=== PATIENT | male | born 1970 | race Caucasian/White ===

== ENCOUNTER → 2021-12-01 | Day surgery (SDC) | payer OTHER ==
[~2021-12-01] VITALS: Ht 180.3 cm; Wt 106.6 kg
[~2021-12-01] MED LIST: ASPIRIN EC81 M1 PO; BRILINTA90 MG PO; FAMOTIDINE20 MG PO; FISH OIL 1,0001 EAC9 PO; METOPROLOL TART25 MG PO; VITAMIN D310 MC4 PO; ZINC50 M2 PO
[2021-12-01 07:21] VITALS: BP 108/76
--- NOTE | 2021-12-01 11:38 | P ---
[facility] [place] [address] PROCEDURE REPORT Name: SHAKIR MACARIO Room #: [facility].#: [id number] Admission: 12/01/21 Attend Phys: Nicola Lagunas MD Discharge: Date of : 74 Report #: [id number] THIS REPORT FOR: cc: FAM - Family physician unknown FAM - Family physician unknown Nicola Lagunas MD ~ DATE OF SERVICE: 12/01/2021 PREOPERATIVE DIAGNOSIS: Bilateral upper lid ptosis with superior visual field defects both eyes. POSTOPERATIVE DIAGNOSIS: Bilateral upper lid ptosis with superior visual field defects both eyes. OPERATION PERFORMED: Bilateral upper lid functional ptosis repair. SURGEON: Nicola Lagunas M.D. [employer] ACTOR: None. ANESTHESIA: Local with IV sedation. COMPLICATIONS: None. INDICATIONS FOR PROCEDURE: This patient has bilateral upper lid ptosis with superior visual field loss both eyes. Visual field testing demonstrates dense superior visual defects. Retesting with the upper lid elevated shows an improvement in visual field loss of over 30% and in excess of 12 degrees. The current procedure is being undertaken in order to improve the patient's visual function. Informed consent was obtained to include but not limited to the risk of loss of vision, bleeding, infection, scarring, failure to improve the problem and need for further surgery, such as adjustment of lid height. DESCRIPTION OF PROCEDURE: The patient was taken to the operating room, where 2% Xylocaine with epinephrine mixed with equal parts of 0.75% Marcaine with Wydase was administered transcutaneously to each upper lid. The patient was then prepped and draped in the usual sterile fashion. An upper lid crease incision was then made bilaterally and the dissection was carried down until the orbital septum was identified. The orbital septum was then cleared and the preaponeurotic fat identified. The levator aponeurosis was then disinserted from the anterior surface of the tarsal plate and dissected free in the avascular Ramos's muscle plane. The aponeurosis was then advanced and reattached to the anterior surface of the tarsal plate with interrupted [facility] [address] [place] [address] PROCEDURE REPORT Name: SHAKIR MACARIO Room #: [facility] [place]#: [id number] Admission: 12/01/21 Attend Phys: Nicola Lagunas MD Discharge: Date of : 74 Report #: [id number] mattress 6-0 Novafil sutures on each side, adjusting for height and contour. The redundant aponeurosis was then amputated. The incision was then closed with multiple interrupted 6-0 chromic sutures that were used to recreate an upper lid crease. The skin was closed with a running 6-0 plain gut suture. The wound was then cleaned and dressed with ophthalmic antibiotic ointment followed by a Telfa pad. The patient was transported to the recovery area, having tolerated the procedure well with no anesthesia or operative complications being noted. <ELECTRONICALLY SIGNED> By: Nicola Lagunas MD 12/01/21 [id number] Nicola Lagunas MD /jacquie
== END | disposition home or self-care (01) ==
LOC: OR 06:20
PROVIDERS: ATTEND Ophthalmology
DX: H02.413 Mechanical ptosis of bilateral eyelids (principal); H53.462 Homonymous bilateral field defects, left side; H53.461 Homonymous bilateral field defects, right side; I10 Essential (primary) hypertension; F17.210 Nicotine dependence, cigarettes, uncomplicated; G47.30 Sleep apnea, unspecified; K21.9 Gastro-esophageal reflux disease without esophagitis; Z98.890 Other specified postprocedural states; Z79.899 Other long term (current) drug therapy; Z20.822 Contact with and (suspected) exposure to COVID-19
CPT/HCPCS: 50010; 50101; 50386; 50398; 51636; 56531; 62110; 62850; 70005